=== PATIENT | female | born 1955 | race Caucasian/White ===

== ENCOUNTER → 2016-11-30 | Outpatient (CLI) | payer OTHER ==
[2016-11-30 11:09] LABS: CH 29.7; CHCM 32.3; HCT 41.6 % (34.0-46.0); HDW 2.64; HGB 13.3 gm/dL (11.4-16.0); MCH 29.6 pg (25.0-35.0); MCV 92.4 fL (80.0-100.0); Mean Platelet Volume 8.1; RDW 13.7 % (11.5-15.5)
[2016-11-30 11:25] LABS: INR 1.1 (<1.1); Partial Thromboplastin Time 23.1 sec (22.0-30.0); Prothrombin Time 10.7 sec (9.0-12.0)
[2016-11-30 11:29] LABS: ALT 58 U/L (9-52); AST 43 U/L (14-36); Alkaline Phosphatase 157 U/L (38-126); Anion Gap 12 mmol/L; Blood Urea Nitrogen 9 mg/dL (7-17); Calcium 9.2 mg/dL (8.4-10.2); Carbon Dioxide 24 mmol/L (22-30); Chloride 108 mmol/L (98-107); Cholesterol 110 mg/dL (<200); Glucose 93 mg/dL (74-99); HDL Cholesterol 45 mg/dL (40-60); Iron 81 ug/dL (37-170); Magnesium 1.9 mg/dL (1.6-2.3); Non-African American GFR(MDRD) >60 (>60 ml/min/1.73 sqM); Phosphorous 3.8 mg/dL (2.5-4.5); Potassium 3.6 mmol/L (3.5-5.1); Sodium 144 mmol/L (137-145); Total Bilirubin 1.5 mg/dL (0.2-1.3); Total Protein 6.7 g/dL (6.3-8.2); Triglycerides 125 mg/dL (<150)
[2016-11-30 11:36] LABS: Hemoglobin A1C 5.5 % (4.2-6.1)
[2016-11-30 11:39] LABS: Prealbumin 19 mg/dL (18-36); Total Iron Binding Capacity 334 ug/dL (265-497)
[2016-11-30 12:34] LABS: Vitamin B12 480 pg/mL (239-931)
[2016-12-05 18:48] LABS: Selenium 81 mcg/L (63-160)
== END | disposition home or self-care (01) ==
LOC: LABWHC1 10:06
PROVIDERS: ATTEND Surgery Plastic and Reconstructive Surgery
DX: E21.1 Secondary hyperparathyroidism, not elsewhere classified (principal); E89.1 Postprocedural hypoinsulinemia; D50.8 Other iron deficiency anemias; K90.89 Other intestinal malabsorption; E55.9 Vitamin D deficiency, unspecified; K74.1 Hepatic sclerosis; N19 Unspecified kidney failure; K50.90 Crohn's disease, unspecified, without complications; E66.01 Morbid (severe) obesity due to excess calories
CPT/HCPCS: 36415; 80053; 80061; 82306; 82525; 82607; 82728; 82746; 83036; 83540; 83550; 83735; 83970; 84100; 84134; 84255; 84425; 84443; 84590; 84630; 85027; 85610; 85730